=== PATIENT | male | born 1950 | race Caucasian/White ===

== ENCOUNTER 2016-12-17 16:26 | Emergency (ER) | payer SELFPAY ==
[~2016-12-17] VITALS: Ht 180.3 cm; Wt 79.0 kg
[2016-12-17 16:33] VITALS: Ht 180.3 cm; Wt 79.0 kg
== END 2016-12-17 17:00 | disposition left against medical advice (07) ==
LOC: E/R 16:26
DX: Z53.21 Procedure and treatment not carried out due to patient leaving prior to being seen by health care provider (principal)